=== PATIENT | male | born 1990 | race Caucasian/White ===

== ENCOUNTER 2022-12-14 19:16 | Inpatient (IN) | payer SELFPAY ==
[2022-12-14] MEDS ORDERED: LORazepam 2 MG/ML VIAL ONE ×2 (19:39→21:50)
[2022-12-14] MEDS ORDERED: NA CHLORIDE 0.9% 1,000 ML ONE ×2 (19:39→21:45)
--- NOTE | 2022-12-14 19:58 | RAD REPORT ---
EXAM DESCRIPTION: CT - Head Brain Wo Cont - 12/14/2022 7:54 pm CLINICAL HISTORY: Seizure, new-onset, no history of trauma COMPARISON: No comparisons TECHNIQUE: All CT scans are performed using dose optimization technique as appropriate and may inclu de automated exposure control or mA/KV adjustment according to patient size. FINDINGS: No intracranial hemorrhage, hydrocephalus or extra-axial fluid collection.No areas of brai n edema or evidence of midline shift. The paranasal sinuses and mastoids are clear. The calvarium is intact. IMPRESSION: No acute intracranial abnormality.
[2022-12-14 20:03] LABS: Absolute Lymphocytes (CBC) 0.7 K/uL (0.7-4.9); Hematocrit 38.6 % (39.6-49.0); MCV 96.2 fL (80-100); MPV 7.8 fL (7.6-11.3); RBC Red Blood Cell Count 4.02 M/uL (4.33-5.43)
[2022-12-14 20:33] LABS: Albumin 3.8 g/dL (3.4-5.0); Bilirubin Total 2.6 mg/dL (0.2-1.0); Magnesium 2.3 mg/dL (1.6-2.4); Potassium 3.4 mmol/L (3.5-5.1); Protein, Total 6.8 g/dL (6.4-8.2); Thyroid Stimulating Hormone 2.93 uIU/mL (0.358-3.740); Troponin High Sensitivity 9.8 pg/mL (<58.9)
--- NOTE | 2022-12-14 21:09 | EDPHYS ---
Physician Documentation [facility] Name: Gonzalo Anderson Age: 32 yrs Sex: Male : 1990 Arrival Date: 12/14/2022 Time: 19:19 Bed 7 Private MD: ED Physician Dixon Lentz HPI: 12/14 19:33 This 32 yrs old Male presents to ER via EMS with complaints of seizure, etoh withdrawal.rt 19:33 The patient presents after having a single isolated seizure, that lasted 1 minute(s). rt Seizure onset: just prior to arrival. Seizure Hx: possibly 1 prior seizure, the patient cannot describe the circumstances surrounding it.. Associated injury: The patient did not suffer any apparent associated injury. Patient with history of alcohol abuse, reportedly drinks about a 12 pack a day down from 20 beers per day, not having alcohol within the past 24 hours presents to the ED with red alcohol withdrawal seizure. He reports a tremulousness. Seizure lasted about 1 minute. Denies any injury. Denies other acute complaints at this time. Symptoms are moderate in severity, no other aggravating or alleviating factors.. Historical: - Allergies: 19:32 No Known Allergies; aa9 - Home Meds: 19:29 None [Active]; aa9 - PMHx: 19:32 None; aa9 - PSHx: 19:29 None; aa9 - Immunization history:: Client reports having NOT received the Covid vaccine. - Social history:: Smoking status: Reported history of juuling and/or vaping. The patient is unemployed. - Family history:: not pertinent. ROS: 19:33 Constitutional: Negative for fever, chills, and weight loss, Eyes: Negative for injury, rt pain, redness, and discharge, Cardiovascular: Negative for chest pain, palpitations, and edema, Respiratory: Negative for shortness of breath, cough, wheezing, and pleuritic chest pain, Abdomen/GI: Negative for abdominal pain, nausea, vomiting, diarrhea, and constipation, Skin: Negative for injury, rash, and discoloration. 19:33 Neuro: Positive for seizure activity, Negative for altered mental status. 19:33 Psych: Positive for alcohol dependence, Negative for depression. Exam: 19:33 Constitutional: This is a well developed, well nourished patient who is awake, alert, rt and in no acute distress. Head/Face: Normocephalic, atraumatic. Chest/axilla: Normal chest wall appearance and motion. Nontender with no deformity. No lesions are appreciated. Respiratory: Lungs have equal breath sounds bilaterally, clear to auscultation and percussion. No rales, rhonchi or wheezes noted. No increased work of breathing, no retractions or nasal flaring. Abdomen/GI: Soft, non-tender, with normal bowel sounds. No distension or tympany. No guarding or rebound. No evidence of tenderness throughout. MS/ Extremity: Pulses equal, no cyanosis. Neurovascular intact. Full, normal range of motion. Psych: Awake, alert, with orientation to person, place and time. Behavior, mood, and affect are within normal limits. 19:33 Cardiovascular: Tachycardic, regular rhythm, heart sounds normal. 19:33 Neuro: Patient is tremulous, awake, alert, oriented. Strength and sensation intact in upper and lower extremities. No cranial nerve deficits.. 19:43 ECG was reviewed by the Attending Physician. rt Vital Signs: 19:26 BP 133 / 91; Pulse 117; Resp 22 S; Temp 98.2(O); Pulse Ox 100% on R/A; Weight 61.23 kg aa9 (R); Height 5 ft. 8 in. (172.72 cm) (R); Pain 0/10; 20:45 BP 121 / 81; Pulse 93; Resp 20 S; Pulse Ox 97% on R/A; aa9 22:03 BP 130 / 83; Pulse 96; Resp 19 S; Pulse Ox 97% on R/A; aa9 22:15 BP 123 / 77; Pulse 96; Resp 19 S; Pulse Ox 98% on R/A; aa9 23:00 BP 130 / 82; Pulse 92; Resp 20; Pulse Ox 96% on R/A; Pain 0/10; pf1 19:26 Body Mass Index 20.53 (61.23 kg, 172.72 cm) aa9 MDM: 19:22 Patient medically screened. rt 21:01 Differential diagnosis: alcohol Withdrawal seizure, alcoholic hepatitis, delirium rt tremens, intracranial hemorrhage, seizure disorder, lecture light disturbance, dysrhythmia.. Data reviewed: vital signs, nurses notes, lab test result(s), EKG, radiologic studies. Consideration of Admission/Observation Patient was admitted/placed on observation. Management of patient was discussed with the following: Hospitalist: Agrees to admit. I considered the following discharge prescriptions or medication management in the emergency department Medications were administered in the Emergency Department. See MAR. Historians other than the Patient: EMS: Discussed that seizure was witnessed by a friend.. Care significantly affected by the following Social Determinants of Health: Poor access to healthcare and/or lack of insurance, Misuse of alcohol and/or drugs. 12/14 19:21 Order name: CBC with Diff; Complete Time: 20:39 rt 12/14 19:21 Order name: CMP; Complete Time: 20:39 rt 12/14 19:21 Order name: Magnesium; Complete Time: 20:39 rt 12/14 19:21 Order name: ETOH Level; Complete Time: 20:39 rt 12/14 19:21 Order name: Troponin High Sensitivity; Complete Time: 20:39 rt 12/14 19:21 Order name: TSH; Complete Time: 20:39 rt 12/14 19:21 Order name: CT Head Brain wo Cont; Complete Time: 20:02 rt 12/14 21:10 Order name: PT-INR; Complete Time: 22:26 rt 12/14 21:10 Order name: Ptt, Activated; Complete Time: 22:26 rt 12/14 21:28 Order name: SARS RAPID; Complete Time: 22:26 la1 12/14 19:21 Order name: EKG; Complete Time: 19:22 rt 12/14 19:21 Order name: EKG - Nurse/Tech; Complete Time: 19:49 rt EC:43 Rate is 92 beats/min. Rhythm is regular, Normal Sinus Rhythm with No ectopy, Right rt bundle branch block. QRS [place] is Normal. MT interval is normal. QRS interval is normal. QT interval is normal. No Q waves. T waves are Normal. No ST changes noted. Administered Medications: 19:45 Drug: Ativan (LORazepam) 1 mg Route: IVP; Site: left antecubital; aa9 22:21 Follow up: Response: No adverse reaction aa9 20:04 Drug: NS 0.9% 1000 ml Route: IV; Rate: 1 bolus; Site: left antecubital; aa9 21:30 Follow up: Response: No adverse reaction; IV Status: Completed infusion; IV Intake: aa9 100ml 21:59 Drug: Ativan (LORazepam) 1 mg Route: IVP; Site: left antecubital; aa9 22:21 Follow up: Response: No adverse reaction aa9 21:59 Drug: Banana Bag - (NS 0.9% 1000 ml, foLIC Acid 1 mg, Thiamine 100 mg, Multivitamin 1 aa9 amp) Route: IV; Rate: 125 ml/hr; Site: left antecubital; 22:50 Follow up: Response: No adverse reaction; Marked relief of symptoms pf1 23:37 Follow up: Response: No adverse reaction; IV Status: Infusion continued upon admission; aa9 IV Intake: 200ml 21:59 Drug: Potassium Effervescent Tablet 25 mEq Route: PO; aa9 22:21 Follow up: Response: No adverse reaction aa9 Disposition Summary: 12/14/22 21:09 Hospitalization Ordered Hospitalization Status: Inpatient Admission rt Provider: Paulino Yun rt Location: Telemetry/MedSurg (Inpatient) rt Condition: Serious rt Problem: new rt Symptoms: have improved rt Bed/Room Type: Standard rt Room Assignment: [facility](12/14/22 23:32) cg Diagnosis - Other seizures rt - Alcohol dependence with withdrawal, unspecified rt - Alcoholic hepatitis rt Forms: - Medication Reconciliation Form rt - SBAR form rt Critical care time excluding procedures: 21:01 Critical care time: Bedside Care: 30 minutes, Consultation: 5 minutes. Total time: 35 rt minutes Signatures: Dispatcher [employer] EDMS Markus Wade, ARIANC ASSEMBLER FINAL-Cla1 Arpita Carter RN RN cg Cheryle New RN RN aa9 Dixon Lentz MD MD rt Aida huggins RN pf1 Corrections: (The following items were deleted from the chart) 23:32 21:09 rt cg
--- NOTE | 2022-12-14 21:09 | ER ---
Nurse's Notes [facility] Name: Gonzalo Anderson Age: 32 yrs Sex: Male : 1990 Arrival Date: 12/14/2022 Time: 19:19 Bed 7 Private MD: Diagnosis: Other seizures;Alcohol dependence with withdrawal, unspecified;Alcoholic hepatitis Presentation: 12/14 19:26 Chief complaint: EMS states: toned out for a possible seizure, pt family member states, aa9 "He has been trying to quit drinking, I heard a loud noise and when I came to check on him he was on the floor seizing, then he got up like everything was fine." Pt [id number] on scene. Coronavirus screen: Vaccine status: Patient reports being unvaccinated. Ebola Screen: No symptoms or risks identified at this time. Initial Sepsis Screen: Does the patient meet any 2 criteria? HR > 90 bpm. No. Patient's initial sepsis screen is negative. Does the patient have a suspected source of infection? No. Patient's initial sepsis screen is negative. Risk Assessment: Do you want to hurt yourself or someone else? Patient reports no desire to harm self or others. Onset of symptoms was December 14, 2022. 19:26 Method Of Arrival: EMS: [facility] aa9 19:26 Acuity: RADHIKA 3 aa9 Triage Assessment: 19:29 General: Appears uncomfortable, slender, unkempt, Behavior is cooperative, anxious. aa9 General: pt states, "I usually drink 12 beer a day, I have not drank at all today, I feel really shaky.". Pain: Denies pain. EENT: No signs and/or symptoms were reported regarding the EENT system. Neuro: Level of Consciousness is awake, alert, obeys commands, Oriented to person, place, time, situation, Milanese Knitting Machine Operator are equal bilaterally Moves all extremities. Speech is normal, Facial symmetry appears normal, Pupils are PERRLA, Seizure activity reported prior to arrival. Neuro: hands are shaking. Cardiovascular: Patient's skin is warm and dry. Respiratory: Airway is patent Respiratory effort is even, unlabored. GI: No signs and/or symptoms were reported involving the gastrointestinal system. : No signs and/or symptoms were reported regarding the genitourinary system. Derm: No signs and/or symptoms reported regarding the dermatologic system. Musculoskeletal: No signs and/or symptoms reported regarding the musculoskeletal system. Historical: - Allergies: 19:32 No Known Allergies; aa9 - Home Meds: 19:29 None [Active]; aa9 - PMHx: 19:32 None; aa9 - PSHx: 19:29 None; aa9 - Immunization history:: Client reports having NOT received the Covid vaccine. - Social history:: Smoking status: Reported history of juuling and/or vaping. The patient is unemployed. - Family history:: not pertinent. Screenin:32 Abuse screen: Denies threats or abuse. Denies injuries from another. Nutritional aa9 screening: No deficits noted. Tuberculosis screening: No symptoms or risk factors identified. 19:32 Clinical [place] Withdrawal Assessment for Alcohol, revised (CIWA-Ar): Headache: 2 - aa9 Mild Paroxysmal Sweats: 1 - Barely perceptible sweating, palms moist Anxiety: 4 - Moderately anxious, guarded Tremor: 4 - Moderate when client's hands extended. 22:00 [facility] ED Fall Risk Assessment (Adult) History of falling in the last 3 months, aa9 including since admission No falls in past 3 months (0 pts) Confusion or Disorientation No (0 pts) Intoxicated or Sedated No (0 pts) Impaired Gait No (0 pts) Mobility Assist Device Used No (0 pt) Altered Elimination No (0 pt) Score/Fall Risk Level 0 - 2 = Low Risk. Assessment: 21:29 Reassessment: Patient appears in no apparent distress at this time. Patient and/or aa9 family updated on plan of care and expected duration. Pain level reassessed. Patient is alert, oriented x 3, equal unlabored respirations, skin warm/dry/pink. General: Appears in no apparent distress. comfortable, Behavior is calm, cooperative. 22:00 Reassessment: Patient appears in no apparent distress at this time. Patient and/or aa9 family updated on plan of care and expected duration. Pain level reassessed. Patient is alert, oriented x 3, equal unlabored respirations, skin warm/dry/pink. Patient denies pain at this time. 22:36 Reassessment: Markus Anderson, Cousin. aa9 23:03 Reassessment: Patient appears in no apparent distress at this time. No changes from pf1 previously documented assessment. Patient and/or family updated on plan of care and expected duration. Pain level reassessed. Patient is alert, oriented x 3, equal unlabored respirations, skin warm/dry/pink. Patient states feeling better. Patient states symptoms have improved. 23:39 Reassessment: Patient appears in no apparent distress at this time. Patient and/or aa9 family updated on plan of care and expected duration. Pain level reassessed. Patient is alert, oriented x 3, equal unlabored respirations, skin warm/dry/pink. Vital Signs: 19:26 BP 133 / 91; Pulse 117; Resp 22 S; Temp 98.2(O); Pulse Ox 100% on R/A; Weight 61.23 kg aa9 (R); Height 5 ft. 8 in. (172.72 cm) (R); Pain 0/10; 20:45 BP 121 / 81; Pulse 93; Resp 20 S; Pulse Ox 97% on R/A; aa9 22:03 BP 130 / 83; Pulse 96; Resp 19 S; Pulse Ox 97% on R/A; aa9 22:15 BP 123 / 77; Pulse 96; Resp 19 S; Pulse Ox 98% on R/A; aa9 23:00 BP 130 / 82; Pulse 92; Resp 20; Pulse Ox 96% on R/A; Pain 0/10; pf1 19:26 Body Mass Index 20.53 (61.23 kg, 172.72 cm) aa9 ED Course: 19:19 Patient arrived in ED. rv1 19:20 Dixon Lentz MD is Attending Physician. rt 19:26 Cheryle New, RN is Primary Nurse. aa9 19:29 Triage completed. aa9 19:32 Arm band placed on. aa9 19:45 Maintain EMS IV. Dressing intact. Good blood return noted. Site clean \\T\\ dry. Gauge \\T\\ aa 9 site: 20 G L AC. 19:49 TSH Sent. aa9 19:49 Troponin High Sensitivity Sent. aa9 19:49 CBC with Diff Sent. aa9 19:49 ETOH Level Sent. aa9 19:50 Patient has correct armband on for positive identification. Placed in gown. Bed in low aa9 position. Call light in reach. Side rails up X2. Client placed on continuous cardiac and pulse oximetry monitoring. NIBP monitoring applied. 19:50 Magnesium Sent. aa9 19:50 CMP Sent. aa9 19:56 CT Head Brain wo Cont In Process Unspecified. EDMS 20:04 Diet: Patient given ice chips. Patient given water. Tolerated well. aa9 21:07 Paulino Yun MD is Hospitalizing Provider. rt 21:59 SARS RAPID Sent. aa9 21:59 Ptt, Activated Sent. aa9 21:59 PT-INR Sent. aa9 22:00 Family accompanied patient. aa9 22:03 No provider procedures requiring assistance completed. aa9 23:37 Patient admitted, IV remains in place. aa9 Administered Medications: 19:45 Drug: Ativan (LORazepam) 1 mg Route: IVP; Site: left antecubital; aa9 22:21 Follow up: Response: No adverse reaction aa9 20:04 Drug: NS 0.9% 1000 ml Route: IV; Rate: 1 bolus; Site: left antecubital; aa9 21:30 Follow up: Response: No adverse reaction; IV Status: Completed infusion; IV Intake: aa9 100ml 21:59 Drug: Ativan (LORazepam) 1 mg Route: IVP; Site: left antecubital; aa9 22:21 Follow up: Response: No adverse reaction aa9 21:59 Drug: Banana Bag - (NS 0.9% 1000 ml, foLIC Acid 1 mg, Thiamine 100 mg, Multivitamin 1 aa9 amp) Route: IV; Rate: 125 ml/hr; Site: left antecubital; 22:50 Follow up: Response: No adverse reaction; Marked relief of symptoms pf1 23:37 Follow up: Response: No adverse reaction; IV Status: Infusion continued upon admission; aa9 IV Intake: 200ml 21:59 Drug: Potassium Effervescent Tablet 25 mEq Route: PO; aa9 22:21 Follow up: Response: No adverse reaction aa9 Medication: 21:29 VIS not applicable for this client. aa9 Intake: 21:30 IV: 100ml; Total: 100ml. aa9 23:37 IV: 200ml; Total: 300ml. aa9 Outcome: 21:09 Decision to Hospitalize by Provider. rt 23:36 Admitted to Med/surg accompanied by tech, via wheelchair, room 212, with chart, Report aa9 called to EZ [place] 23:36 Condition: stable 23:36 Instructed on the need for admit. 23:53 Patient left the ED. aa9 Signatures: Dispatcher [employer] Cheryle Unger RN RN aa9 Dixon Lentz MD MD rt Aida huggins RN RN pf1 Teofilo, Janelle 1 Corrections: (The following items were deleted from the chart) 23:52 23:36 Instructed on the need for admit, aa9 aa9 23:52 23:36 Admitted to Med/surg accompanied by tech, via wheelchair, room 212, with chart, aa9 aa9
[2022-12-14] MEDS ORDERED: THIAMINE 200 MG/2 ML INJ ONE (21:43)
[2022-12-14] MEDS ORDERED: POTASSIUM 25 MEQ EFFERV TAB ONE (21:44)
[2022-12-14] MEDS ORDERED: MULTIVITAMINS 10 ML VIAL (INJ) IV ONE (21:44)
[2022-12-14] MEDS ORDERED: FOLIC ACID 5 MG/ML VIAL ONE (21:45)
--- NOTE | 2022-12-14 21:48 | P.HP ---
Certification for Inpatient Patient admitted to: Observation With expected LOS: <2 Midnights Patient will require the following post-hospital care: None Practitioner: I am a practitioner with admitting privileges, knowledge of patient current condition, hospital course, and medical plan of care. Services: Services provided to patient in accordance with Admission requirements found in Title 42 Section 412.3 of the Code of Federal Regulations Patient History Date of Service: 12/14/22 Reason for admission: Seizure, alcohol withdrawal History of Present Illness: 32-year-old male with no known past medical history admits to chronic alcohol abuse presents emergency department for suspected seizure. Patient's family/friend reportedly heard a loud noise and found him seizing the floor, seizure reportedly lasted approximately 1 to 2 minutes. Patient admits to drinking approximately 20-30 beers per day for the last 2 to 3 years, has recently been tapering himself off last week he had gone down to about 12 pack/day on Thursday, he was drinking 5-6 beers a day, on Thursday he had 3 beers in the afternoon and since then has not had any alcohol. He is mildly tachycardic and tremulous in the ED. His labs demonstrated mild alcohol hepatitis PT/INR sent and pending. Patient with no further seizure activity, ED provider wishes to admit for further evaluation and management of seizure, alcohol withdrawals. - Past Medical/Surgical History -: None -: Dental surgery Psychosocial/ Personal History: Patient lives at home with family - Family History Mother -: Kidney disease - Social History Smoking Status: Never smoker Alcohol use: Yes CD- Drugs: No Caffeine use: No Place of Residence: Home Review of Systems 10-point ROS is otherwise unremarkable Neurological: Seizures, As per HPI Physical Examination - Physical Exam General: Alert, In no apparent distress, Oriented x3, Other (Tremulous) HEENT: Atraumatic, PERRLA, Mucous membr. moist/pink, EOMI, Sclerae nonicteric Neck: Supple, 2+ carotid pulse no bruit, No LAD, Without JVD or thyroid abnormality Respiratory: Clear to auscultation bilaterally, Normal air movement Cardiovascular: Regular rate/rhythm, Normal S1 S2 Capillary refill: <2 Seconds Gastrointestinal: Normal bowel sounds, No tenderness Musculoskeletal: No tenderness Integumentary: No rashes Neurological: Normal speech, Normal strength at 5/5 x4 extr, Normal tone, Normal affect - Studies Laboratory Data (last 24 hrs) 12/14/22 19:47: Sodium 134 L, Potassium 3.4 L, BUN 5 L, Creatinine 0.76, Glucose 140 H, Magnesium 2.3, Total Bilirubin 2.6 H, AST 295 H, ALT 131 H, Alkaline Phosphatase 106 12/14/22 19:47: WBC 5.40, Hgb 13.3 L, Hct 38.6 L, Plt Count 216 Assessment and Plan - Plan Assessment: Seizure likely secondary to alcohol withdrawal Alcohol hepatitis Hypokalemia Plan: Seizure likely secondary to alcohol withdrawal No further seizure-like activity thus far, patient was received 2 separate doses of Ativan 1 mg in the emergency department which is controlling symptoms well. HR around 100, pt alert. He has been tremulous the past couple of weeks while tapering his ETOH use. Continue PRN librium/ativan if needed. seizure precautions in place. Folic acid/thiamine supplementation ordered. Alcohol hepatitis PT/INR pending, LFTs moderately elevated, elevated TBili. PLT normal. Patient will need outpatient GI evaluation, discussed need for this as well as absolute cessation of ETOH. Hypokalemia Replaced in ED, protocol in place. DVT PPX: Lovenox Code status: Full Discharge Plan: Home Plan to discharge in: 24 Hours - Advance Directives Does patient have a Living Will: No Does patient have a Durable POA for Healthcare: No - Code Status/Comfort Care Code Status Assessed: Yes (Full code) Critical Care: No Time Spent Managing Pts Care (In Minutes): 55
[2022-12-14 22:16] LABS: SARS-CoV-2 Antigen Rapid Res Negative (Negative)
[2022-12-14 22:20] LABS: Protime INR 0.96
[2022-12-14] MEDS ORDERED: chlordiazePOXIDE HCl 5 MG CAP PO PRN (23:59)
[2022-12-14] MEDS ORDERED: ONDANSETRON 4 MG/2 ML VIAL IV PRN (23:59)
[2022-12-15 00:10] VITALS: BMI 20.5
[2022-12-15 01:25] VITALS: O2SAT 99
[2022-12-15 05:52] LABS: Absolute Lymphocytes (CBC) 1.3 K/uL (0.7-4.9); Hematocrit 36.3 % (39.6-49.0); Lymphocytes % 24.5 % (15.3-44.8); MCV 96.3 fL (80-100); MPV 7.9 fL (7.6-11.3); Protime INR 0.97; RBC Red Blood Cell Count 3.76 M/uL (4.33-5.43)
[2022-12-15 06:06] LABS: ALT/SGPT 101 U/L (16-61); AST/SGOT 214 U/L (15-37); Albumin 2.8 g/dL (3.4-5.0); Alkaline Phosphatase 84 U/L (45-117); Bicarbonate 26 mmol/L (21-32); Bilirubin Total 2.1 mg/dL (0.2-1.0); Glomerular Filtration Rate 136 ml/min (=/>90); Glucose Level 70 mg/dL (74-106); HDL Cholesterol 133 mg/dL (40-60); LDL Cholesterol, Calculated 48 mg/dL (<130); Magnesium 2.2 mg/dL (1.6-2.4); Protein, Total 5.6 g/dL (6.4-8.2); Sodium Level 139 mmol/L (136-145)
[2022-12-15 06:07] LABS: BUN Blood Urea Nitrogen < 3 mg/dL (7-18)
[2022-12-15] MEDS ORDERED: POTASSIUM 25 MEQ EFFERV TAB PO ONE (08:00)
--- NOTE | 2022-12-15 08:26 | RAD REPORT ---
EXAM DESCRIPTION: US - Abdomen Exam Limited - 12/15/2022 2:44 am CLINICAL HISTORY: RUQ Liver/gallbladder COMPARISON: No comparisons FINDINGS: The gallbladder demonstrates no gallstones. No pericholecystic fluid or gallbladder wall t hickening. The common bile duct is normal measuring 4 mm. The liver demonstrates fatty liver. IMPRESSION: Fatty liver. Negative gallbladder/ biliary tree findings.
[2022-12-15] MEDS: FOLIC ACID 1 MG, MULTIVITAMINS INJ 10 ML, THIAMINE HCL 100 MG in NA CHLORIDE 0.9% 1,000 ML IV SCH (08:31)
[2022-12-15] MEDS: ENOXAPARIN 40 MG/0.4 ML SQ SCH (10:56)
[2022-12-15] MEDS ORDERED: LORazepam 2 MG/ML VIAL IV PRN (11:02)
[2022-12-15] MEDS ORDERED: FLUMAZENIL 0.1 MG/ML (5 mL VIAL) IV PRN (11:02)
[2022-12-15] MEDS: chlordiazePOXIDE HCl 25 MG CAP PO SCH ×2 (15:26→20:01)
--- NOTE | 2022-12-15 16:51 | EKG ---
Test Date: 2022-12-14 Test Time: 19:41:53 Ordnance Artificer: LORENZO MEASUREMENT RESULTS: Intervals: Rate: 97 W[place]: 122 QRSD: 106 QT: 354 QTc: 449 [place]: P: 81 W[place]: 122 QRS: 65 T: 57 INTERPRETIVE STATEMENTS: Normal sinus rhythm Incomplete right bundle branch block Borderline ECG No previous ECG available for comparison Electronically Signed On 12-15-22 16:50:02 HELMET HAT SWEATBAND PUNCHER by Harjit Jacob
--- NOTE | 2022-12-15 21:27 | P.PN ---
Date of Service: 12/15/22 Subjective: felt ok when he first woke up this morning, gradually began to have more tremors tachycardic yesterday had seizure, and night before with hallucinations - visual and auditory no itching, no abd pain ROS: A complete review of systems was performed and is negative except as mentioned above Physical Exam: Gen: NAD, AOx3 HEENT: normal conjunctiva, sclera anicteric CV: sinus tachycardia, no edema Pulm: non-labored respirations, clear bilaterally Abd: soft, non-tender, non-distended Neuro: normal speech, moderate trems in b/l upper extremities at rest vitals reviewed Problem List Alcohol withdrawal, with seizure and hallucinations concerning for Delirium Tremens Alcohol dependence Alcohol hepatitis Hypokalemia Alcohol neuropathy Reports seizure on day of admission, and visual and auditory hallucinations secondary to alcohol withdrawal no further seizure-like activity s/p ativan 1mg x2 Tachycardia improved tremulous, slightly increased schedule librium PRN as well folic acid/thiamine supplementation LFTs improving reports paresthesias in fingers/toes for some time VTE: lovenox Code: full Dispo; home, ~1-2 days
[2022-12-16 03:45] LABS: Absolute Lymphocytes (CBC) 1.8 K/uL (0.7-4.9); Hematocrit 39.1 % (39.6-49.0); Lymphocytes % 33.5 % (15.3-44.8); MCV 96.9 fL (80-100); RBC Red Blood Cell Count 4.03 M/uL (4.33-5.43)
[2022-12-16 04:27] LABS: Bilirubin Total 1.7 mg/dL (0.2-1.0); Potassium 3.4 mmol/L (3.5-5.1)
[2022-12-16 04:28] LABS: Albumin 3.1 g/dL (3.4-5.0); Magnesium 2.1 mg/dL (1.6-2.4); Phosphorus 2.8 mg/dL (2.5-4.9); Protein, Total 6.1 g/dL (6.4-8.2)
[2022-12-16] MEDS ORDERED: POTASSIUM CL SA 10 MEQ TAB PO ONE ×2 (06:00→15:28)
[2022-12-16] MEDS ORDERED: NA CHLORIDE 0.9% 0 ML ONE (08:41)
[2022-12-16] MEDS ORDERED: THIAMINE 200 MG/2 ML INJ ONE (08:41)
[2022-12-16] MEDS: chlordiazePOXIDE HCl 25 MG CAP PO SCH ×2 (09:44→20:55)
[2022-12-16] MEDS: ENOXAPARIN 40 MG/0.4 ML SQ SCH (09:44)
[2022-12-16] MEDS: FOLIC ACID 1 MG, MULTIVITAMINS INJ 10 ML, THIAMINE HCL 100 MG in NA CHLORIDE 0.9% 1,000 ML IV SCH (10:39)
--- NOTE | 2022-12-16 16:41 | P.PN ---
Subjective Date of Service: 12/16/22 Chief Complaint: Seizure, alcohol withdrawal Patient states he feels better. He has less tremors, he is awake and alert and ambulatory. He denies any new complaint. Physical Examination - Vital Signs Temperature: 98.3 F Blood Pressure: 126/79 Pulse: 84 Respirations: 16 Pulse Ox (%): 98 Assessment And Plan - Plan Physical Exam: Gen: NAD, AOx3 HEENT: normal conjunctiva, sclera anicteric CV: sinus tachycardia, no edema Pulm: non-labored respirations, clear bilaterally Abd: soft, non-tender, non-distended Neuro: normal speech, mild tremors both hands. vitals reviewed Problem List Alcohol withdrawal, with seizure and hallucinations concerning for Delirium Tremens Alcohol dependence Alcohol hepatitis Hypokalemia Alcohol neuropathy Reports seizure on day of admission, and visual and auditory hallucinations secondary to alcohol withdrawal no more seizure-like activity Continue CIWA with Librium and Ativan. folic acid/thiamine supplementation LFTs improving IV hydration. Neurochecks. VTE: lovenox Code: full Dispo; home.
[2022-12-17 07:27] LABS: Bicarbonate 28 mmol/L (21-32); Glomerular Filtration Rate 128 ml/min (=/>90); Glucose Level 95 mg/dL (74-106); Potassium 3.2 mmol/L (3.5-5.1); Sodium Level 141 mmol/L (136-145)
[2022-12-17 07:41] LABS: BUN Blood Urea Nitrogen < 3 mg/dL (7-18)
[2022-12-17 08:01] VITALS: BP 113/81; TEMP 97.7
[2022-12-17] MEDS: chlordiazePOXIDE HCl 25 MG CAP PO SCH (08:01)
[2022-12-17] MEDS: ENOXAPARIN 40 MG/0.4 ML SQ SCH (08:01)
--- NOTE | 2022-12-17 08:48 | P.DS ---
Admission Date: 12/15/22 Discharge Date: 12/17/22 Disposition: ROUTINE DISCHARGE Discharge Condition: FAIR Reason for Admission: Seizure, alcohol withdrawal - Problems (1) Alcohol withdrawal syndrome Status: Acute Brief History of Present Illness: 32-year-old male with no known past medical history admits to chronic alcohol abuse presents emergency department for suspected seizure. Patient's family/friend reported hearing a loud noise and found him seizing on the floor. Seizure reportedly lasted approximately 1 to 2 minutes. Patient admitted to drinking approximately 20-30 beers per day for the last 2 to 3 years, has recently been tapering himself off last week he had gone down to about 12 pack/day on Thursday, he was drinking 5-6 beers a day, on Thursday he frtiz d 3 beers in the afternoon and since then has not had any alcohol. He was tachycardic and tremulous in the ED. His labs demonstrated elevated LFTs. Patient was admitted for further management of alcohol withdrawal with seizures. Hospital Course: Diagnosis Alcohol withdrawal, with seizure and hallucinations concerning for Delirium Tremens Alcohol dependence Alcohol hepatitis Hypokalemia Alcohol neuropathy Reports seizure on day of admission, and visual and auditory hallucinations secondary to alcohol withdrawal. Patient admitted to the medical floor and placed on CIWA protocol with Librium and Ativan as needed. He was also aggressively hydrated with IV fluid and put on folic acid and thiamine supplementation. no more seizure-like activity during the hospital stay. LFTs were stable Patient's symptoms improved, he was ambulatory and eating. He is alert and oriented and has no complaint. No more tremor. Patient has clinically improved for discharge. He is prescribed a single dose of Librium for tomorrow and has been advised not to drink alcohol. Vital Signs/Physical Exam: Temp Pulse Resp BP Pulse Ox 97.7 F 93 H 18 113/81 100 12/17/22 08:00 12/17/22 08:00 12/17/22 08:00 12/17/22 08:00 12/17/22 08:00 General: Alert, In no apparent distress, Oriented x3 HEENT: Mucous membr. moist/pink Neck: JVD not distended Respiratory: Clear to auscultation bilaterally, Normal air movement Cardiovascular: No edema, Regular rate/rhythm, Normal S1 S2 Gastrointestinal: Normal bowel sounds, Soft and benign, Non-distended, No tenderness Musculoskeletal: No swelling Integumentary: No rashes, No cyanosis Neurological: Normal strength at 5/5 x4 extr Laboratory Data at Discharge: WBC 5.20 K/uL (4.3-10.9) 12/16/22 02:24 Hgb 13.1 g/dL (13.6-17.9) L 12/16/22 02:24 Hct 39.1 % (39.6-49.0) L 12/16/22 02:24 Plt Count 192 K/uL (152-406) 12/16/22 02:24 PT 10.7 SECONDS (9.5-12.5) 12/15/22 05:13 INR 0.97 12/15/22 05:13 APTT 25.0 SECONDS (24.3-36.9) 12/14/22 21:50 Sodium 141 mmol/L (136-145) 12/17/22 06:28 Potassium 3.2 mmol/L (3.5-5.1) L D 12/17/22 06:28 BUN < 3 mg/dL (7-18) L 12/17/22 06:28 Creatinine 0.63 mg/dL (0.70-1.30) L 12/17/22 06:28 Glucose 95 mg/dL (74-106) 12/17/22 06:28 Phosphorus 2.8 mg/dL (2.5-4.9) 12/16/22 02:24 Magnesium 2.1 mg/dL (1.6-2.4) 12/16/22 02:24 Total Bilirubin 1.7 mg/dL (0.2-1.0) H 12/16/22 02:24 AST 174 U/L (15-37) H 12/16/22 02:24 ALT 101 U/L (16-61) H 12/16/22 02:24 Alkaline Phosphatase 83 U/L (45-117) 12/16/22 02:24 Triglycerides 84 mg/dL (<150) 12/15/22 05:13 Cholesterol 198 mg/dL (<200) 12/15/22 05:13 HDL Cholesterol 133 mg/dL (40-60) H 12/15/22 05:13 Cholesterol/HDL Ratio 1.49 12/15/22 05:13 Home Medications: chlordiazePOXIDE HCl [Librium*] 25 mg PO DAILY #1 cap 12/17/22 New Medications: chlordiazePOXIDE HCl [Librium*] 25 mg PO DAILY #1 cap Followup: Unknown,U [Primary Care Provider] - Time spent managing pt's care (in minutes): 35
[2022-12-17] MEDS ORDERED: POTASSIUM CL SA 10 MEQ TAB PO ONE (09:00)
== END 2022-12-17 11:20 | disposition home or self-care (01) | DRG 101 ==
LOC: ER 19:16 → ERHOLD 21:28 → 2ND 23:36 → OBSVTOIN 12-15 12:02
PROVIDERS: ADMIT Hospitalist; ATTEND Internal Medicine
DX: R56.9 Unspecified convulsions (principal); F10.232 Alcohol dependence with withdrawal with perceptual disturbance; F10.288 Alcohol dependence with other alcohol-induced disorder; F10.221 Alcohol dependence with intoxication delirium; K70.10 Alcoholic hepatitis without ascites; G62.1 Alcoholic polyneuropathy; E87.6 Hypokalemia; Z56.0 Unemployment, unspecified; Z79.899 Other long term (current) drug therapy; Z28.310 Unvaccinated for COVID-19; Z20.822 Contact with and (suspected) exposure to COVID-19
CPT/HCPCS: 36415; 70450; 76705; 80048; 80053; 80061; 82607; 83735; 84100; 84132; 84439; 84443; 84484; 85025; 85610; 85730; 87811; 93005; 96361; 96365; 96366; 96375; 99285; G0378; G0480; J1650; J3411; J7030

== ENCOUNTER 2023-05-05 17:51 | Emergency (ER) | payer SELFPAY ==
[2023-05-05] MEDS ORDERED: THIAMINE 200 MG/2 ML INJ ONE (18:18)
[2023-05-05] MEDS ORDERED: NA CHLORIDE 0.9% 1,000 ML ONE (18:19)
[2023-05-05] MEDS ORDERED: LORazepam 2 MG/ML VIAL ONE (18:19)
[2023-05-05] MEDS ORDERED: MULTIVITAMINS 10 ML VIAL (INJ) IV ONE (18:19)
[2023-05-05] MEDS ORDERED: FOLIC ACID 5 MG/ML VIAL ONE (18:20)
[2023-05-05 18:43] LABS: Absolute Lymphocytes (CBC) 0.7 K/uL (0.7-4.9); Hematocrit 40.9 % (39.6-49.0); MCV 91.4 fL (80-100); MPV 7.3 fL (7.6-11.3); RBC Red Blood Cell Count 4.48 M/uL (4.33-5.43)
[2023-05-05 18:45] LABS: Protime INR 0.95
[2023-05-05 18:57] LABS: ALT/SGPT 67 U/L (16-61); AST/SGOT 76 U/L (15-37); Albumin 4.2 g/dL (3.4-5.0); Alkaline Phosphatase 79 U/L (45-117); BUN Blood Urea Nitrogen 8 mg/dL (7-18); Bicarbonate 28 mEq/L (21-32); Bilirubin Direct 0.4 mg/dL (0-0.2); Bilirubin Total 1.4 mg/dL (0.2-1.0); Glomerular Filtration Rate 122 ml/min (=/>90); Glucose Level 97 mg/dL (74-106); Potassium 3.6 mEq/L (3.5-5.1); Protein, Total 7.6 g/dL (6.4-8.2); Sodium Level 132 mEq/L (136-145)
[2023-05-05 19:17] LABS: Barbiturates NEGATIVE (NEGATIVE); Benzodiazepines NEGATIVE (NEGATIVE); Cocaine NEGATIVE (NEGATIVE); METHAMPHETAM NEGATIVE (NEGATIVE); Methadone NEGATIVE (NEGATIVE); Opiates NEGATIVE (NEGATIVE); Phencyclidine NEGATIVE (NEGATIVE); THC Cannibis NEGATIVE (NEGATIVE)
--- NOTE | 2023-05-05 20:02 | EDPHYS ---
Physician Documentation [facility] Name: Gonzalo Anderson Age: 32 yrs Sex: Male : 1990 Arrival Date: 05/05/2023 Time: 17:51 Bed 19 Private MD: ED Physician Reynold Yun HPI: 05/05 20:35 This 32 yrs old Male presents to ER via EMS with complaints of Tremor. kb 20:36 The patient's problem is reported as tremors, "feels like I'm going to have a seizure". kb Onset: The symptoms/episode began/occurred just prior to arrival. Duration: The episode is continuous. Context: occurred at home. The symptoms are alleviated by nothing. The symptoms are aggravated by nothing. Associated signs and symptoms: Pertinent positives: tremor, "feels like I'm going to have a seizure". Severity of symptoms: At their worst the symptoms were mild moderate in the emergency department the symptoms are unchanged. Patient's baseline: Neuro: alert and fully oriented, Motor: no deficits, Ambulation: walks without assistance, Speech: normal. The patient has experienced a previous episode. The patient has not recently seen a physician. Pt reports tremors and that he felt like he was going to have a seizure so he called 911. Also reports he believes he has a fungal infection in his mouth. Historical: - Allergies: 17:56 No Known Allergies; eh3 - PMHx: 17:56 Seizure; Depressive disorder; Fatty liver; eh3 - Immunization history:: Adult Immunizations unknown. - Social history:: Smoking status: unknown. ROS: 20:34 Constitutional: Negative for fever, chills, and weight loss. kb 20:34 ENT: Positive for "fungal infection in mouth". 20:34 Neuro: Positive for tremor. 20:34 All other systems are negative. Exam: 20:11 Constitutional: This is a well developed, well nourished patient who is awake, alert, kb and in no acute distress. Head/Face: Normocephalic, atraumatic. ENT: Moist Mucous membranes Cardiovascular: Regular rate and rhythm with a normal S1 and S2. No gallops, murmurs, or rubs. No pulse deficits. Respiratory: Respirations even and unlabored. No increased work of breathing. Talking in full sentences Abdomen/GI: Soft, non-tender. No distention Skin: Warm, dry with normal turgor. Normal color. MS/ Extremity: Pulses equal, no cyanosis. Neurovascular intact. Full, normal range of motion. Neuro: Awake and alert, GCS 15, oriented to person, place, time, and situation. Moves all extremities. Normal gait. 20:11 ECG was reviewed by the Attending Physician. 20:34 ENT: Mouth: Tongue: displays thrush. kb 20:39 CT study not indicated or reported. Reason for not performing CT: not indicated kb Vital Signs: 17:54 BP 142 / 94; Pulse 80; Resp 16; Temp 98.6(O); Pulse Ox 98% on R/A; Weight 63.5 kg; eh3 Height 5 ft. 8 in. ; 18:30 BP 136 / 87; Pulse 87; Resp 18; Pulse Ox 98% on R/A; eh3 19:00 BP 143 / 85; Pulse 102; Resp 16; Pulse Ox 98% on R/A; eh3 19:30 BP 136 / 73; Pulse 85; Resp 16; Pulse Ox 97% on R/A; eh3 20:00 BP 139 / 77; Pulse 89; Resp 19; Pulse Ox 98% on R/A; eh3 17:54 Body Mass Index 21.29 (63.50 kg, 172.72 cm) eh3 MDM: 17:56 Patient medically screened. kb 20:35 Data reviewed: vital signs, nurses notes. kb 20:38 Differential diagnosis: drug effects, alcohol withdrawal. Management of patient was kb discussed with the following: Dr Yun. Historians other than the Patient: EMS: [facility]. Counseling: I had a detailed discussion with the patient and/or guardian regarding: the historical points, exam findings, and any diagnostic results supporting the discharge/admit diagnosis, lab results, the need for outpatient follow up, a family practitioner, to return to the emergency department if symptoms worsen or persist or if there are any questions or concerns that arise at home. 20:40 ED course: Discussed use of librium with pt. Educated that I would prescribe it if he kb planned to quit drinking. Pt reports his plan is to quit. Librium taper prescribed. 05/05 18:03 Order name: Acetaminophen; Complete Time: 18:59 kb 05/05 18:03 Order name: Basic Metabolic Panel; Complete Time: 18:59 kb 05/05 18:03 Order name: CBC with Diff; Complete Time: 18:56 kb 05/05 18:03 Order name: ETOH Level; Complete Time: 19:21 kb 05/05 18:03 Order name: Hepatic Function; Complete Time: 18:59 kb 05/05 18:03 Order name: PT-INR; Complete Time: 18:47 kb 05/05 18:03 Order name: Ptt, Activated; Complete Time: 18:47 kb 05/05 18:03 Order name: Salicylate; Complete Time: 19:07 kb 05/05 18:03 Order name: Urine Drug Screen; Complete Time: 19:21 kb 05/05 18:03 Order name: EKG; Complete Time: 18:04 kb 05/05 18:03 Order name: EKG - Nurse/Tech; Complete Time: 18:41 kb 05/05 18:03 Order name: IV Saline Lock; Complete Time: 18:08 kb 05/05 18:03 Order name: Labs collected and sent; Complete Time: 18:08 kb 05/05 18:03 Order name: Suicide Screening (Camilla); Complete Time: 18:41 kb EC:11 Rate is 89 beats/min. Rhythm is regular. QRS [place] is Normal. PA interval is normal at kb 128 msec. QRS interval is normal at 96 msec. QT interval is normal at 496 msec. Administered Medications: 18:28 Drug: Banana Bag - (NS 0.9% IV 1000 ml, foLIC Acid IVPB 1 mg, Thiamine IV 100 mg, eh3 Multivitamin IV 1 amp) Route: IV; Rate: calculated rate; Site: left antecubital; 18:31 Drug: Ativan IVP 1 mg Route: IVP; Site: left antecubital; eh3 Disposition Summary: 05/05/23 20:01 Discharge Ordered Location: Home kb Condition: Stable kb Diagnosis - Alcohol dependence with withdrawal, uncomplicated kb - Candidal stomatitis kb Followup: kb - With: Emergency Department - When: As needed - Reason: Worsening of condition Followup: kb - With: Private Physician - When: 2 - 3 days - Reason: Recheck today's complaints, Continuance of care, Re-evaluation by your physician Discharge Instructions: - Discharge Summary Sheet kb - Alcohol Withdrawal Syndrome kb - Oral Thrush, Adult kb Forms: - Medication Reconciliation Form kb - Thank You Letter kb - Antibiotic Education kb - Prescription Opioid Use kb Prescriptions: - chlordiazepoxide HCl 25 mg Oral capsule - take 2 capsule by ORAL route every 6 hours . Take 2 caps QID on day 1, take 2 kb caps TID on day 2, take 2 caps BID on day 3, take 2 caps once on day 4 and take 1 cap at bedtime on day 5; 21 capsule; Refills: 0, Product Selection Permitted - Nystatin 100,000 unit/mL Oral Suspension - take 5 milliliters by ORAL route every 6 hours swish and spit/swallow; 120 kb milliliter; Refills: 0, Product Selection Permitted Signatures: Dispatcher [employer] Brigid Leyva, SUBSTITUTE NURSE-C MING-Nga Crandall, RN RN eh3
--- NOTE | 2023-05-05 20:02 | ER ---
Nurse's Notes [facility] Name: Gonzalo Anderson Age: 32 yrs Sex: Male : 1990 Arrival Date: 05/05/2023 Time: 17:51 Bed 19 Private MD: Diagnosis: Alcohol dependence with withdrawal, uncomplicated;Candidal stomatitis Presentation: 05/05 17:54 Chief complaint: EMS states: toned out because pt said he felt like he was about to [facility] have a seizure, last seizure was several months ago. Pt also c/o fungal infection and has auditory hallucinations. Coronavirus screen: Vaccine status: Patient reports being unvaccinated. Ebola Screen: No symptoms or risks identified at this time. Initial Sepsis Screen: Does the patient meet any 2 criteria? No. Patient's initial sepsis screen is negative. Does the patient have a suspected source of infection? No. Patient's initial sepsis screen is negative. Risk Assessment: Do you want to hurt yourself or someone else? Patient reports no desire to harm self or others. Onset of symptoms was May 05, 2023. 17:54 Method Of Arrival: EMS: [facility] 17:54 Acuity: RADHIKA 3 eh3 Triage Assessment: 17:56 General: Appears in no apparent distress. uncomfortable, Behavior is calm, cooperative. eh3 Pain: Denies pain. Neuro: Level of Consciousness is awake, alert, obeys commands, Oriented to person, place, time, situation. Cardiovascular: Capillary refill < 3 seconds Patient's skin is warm and dry. Respiratory: Airway is patent Respiratory effort is even, unlabored, Respiratory pattern is regular, symmetrical. GI: Abdomen is round non-distended. Derm: Skin is pink, warm \T\ dry. Musculoskeletal: Circulation, motion, and sensation intact. Range of motion: intact in all extremities. Historical: - Allergies: 17:56 No Known Allergies; eh3 - PMHx: 17:56 Seizure; Depressive disorder; Fatty liver; eh3 - Immunization history:: Adult Immunizations unknown. - Social history:: Smoking status: unknown. Screenin:58 [facility] ED Fall Risk Assessment (Adult) Score/Fall Risk Level 0 - 2 = Low Risk. Abuse eh3 screen: Denies threats or abuse. Denies injuries from another. Nutritional screening: Had unintentional weight loss of 10 pounds or more. Tuberculosis screening: No symptoms or risk factors identified. Assessment: 17:58 Reassessment: No changes from previously documented assessment. See triage assessment. 3 18:00 Reassessment: Pt denies suicidal ideation. eh3 18:30 Reassessment: Patient appears in no apparent distress at this time. Patient and/or 3 family updated on plan of care and expected duration. Pain level reassessed. Patient is alert, oriented x 3, equal unlabored respirations, skin warm/dry/pink. 19:30 Reassessment: Patient appears in no apparent distress at this time. Patient and/or eh3 family updated on plan of care and expected duration. Pain level reassessed. Patient is alert, oriented x 3, equal unlabored respirations, skin warm/dry/pink. 20:00 Reassessment: Patient appears in no apparent distress at this time. Patient and/or 3 family updated on plan of care and expected duration. Pain level reassessed. Patient is alert, oriented x 3, equal unlabored respirations, skin warm/dry/pink. Vital Signs: 17:54 BP 142 / 94; Pulse 80; Resp 16; Temp 98.6(O); Pulse Ox 98% on R/A; Weight 63.5 kg; 3 Height 5 ft. 8 in. ; 18:30 BP 136 / 87; Pulse 87; Resp 18; Pulse Ox 98% on R/A; eh3 19:00 BP 143 / 85; Pulse 102; Resp 16; Pulse Ox 98% on R/A; eh3 19:30 BP 136 / 73; Pulse 85; Resp 16; Pulse Ox 97% on R/A; eh3 20:00 BP 139 / 77; Pulse 89; Resp 19; Pulse Ox 98% on R/A; eh3 17:54 Body Mass Index 21.29 (63.50 kg, 172.72 cm) 3 ED Course: 17:53 Patient arrived in ED. 3 17:56 Triage completed. 3 17:56 Brigid Sloan FNP-C is [facility]. kb 17:56 Reynold Yun MD is Attending Physician. kb 17:56 Arm band placed on. 3 17:58 Patient has correct armband on for positive identification. Bed in low position. Call [facility] light in reach. Side rails up X2. Seizure precautions initiated. Client placed on continuous cardiac and pulse oximetry monitoring. NIBP monitoring applied. 17:58 Maintain EMS IV. Dressing intact. Good blood return noted. Site clean \T\ dry. Gauge \T\ eh 3 site: 20g LAC. 18:08 Nga Noe, RN is Primary Nurse. eh3 20:21 No provider procedures requiring assistance completed. IV discontinued, intact, eh3 bleeding controlled, No redness/swelling at site. Pressure dressing applied. Administered Medications: 18:28 Drug: Banana Bag - (NS 0.9% IV 1000 ml, foLIC Acid IVPB 1 mg, Thiamine IV 100 mg, eh3 Multivitamin IV 1 amp) Route: IV; Rate: calculated rate; Site: left antecubital; 18:31 Drug: Ativan IVP 1 mg Route: IVP; Site: left antecubital; 3 Medication: 20:21 VIS not applicable for this client. eh3 Outcome: 20:01 Discharge ordered by . sarah 20:21 Discharged to home ambulatory. eh3 20:21 Condition: stable 20:21 Discharge instructions given to patient, Instructed on discharge instructions, follow up and referral plans. medication usage, Demonstrated understanding of instructions, follow-up care, medications, Prescriptions given X 2. 20:22 Patient left the ED. 3 Signatures: Brigid Sloan, DANCE HISTORIAN-C DANCE HISTORIAN-Nga Crandall, RN RN 3
[2023-05-05 20:40] VITALS: TEMP 98.6
[2023-05-05 20:44] VITALS: BP 139/77; O2SAT 98
--- NOTE | 2023-05-06 08:18 | EKG ---
Test Date: 2023-05-05 Test Time: 18:35:40 [employer] Mechanical Designer: NAFISA MEASUREMENT RESULTS: Intervals: Rate: 89 HI: 128 QRSD: 96 QT: 408 QTc: 496 Burt: P: 75 HI: 128 QRS: 78 T: 68 INTERPRETIVE STATEMENTS: Normal sinus rhythm Prolonged QT Abnormal ECG Compared to ECG 12/14/2022 19:41:53 Prolonged QT interval now present Incomplete right bundle-branch block no longer present Electronically Signed On 05-06-23 08:17:24 CDT by Agus King
== END 2023-05-05 20:22 | disposition home or self-care (01) ==
LOC: ER 17:51
DX: F10.239 Alcohol dependence with withdrawal, unspecified (principal); B37.0 Candidal stomatitis
CPT/HCPCS: 36415; 80048; 80076; 80143; 80179; 80307; 82077; 85025; 85610; 85730; 93005; 96374; 96375; 99284; J3411; J7030